=== PATIENT | female | born 1985 | race Hispanic/Latino ===

== ENCOUNTER 2019-05-04 06:30 | Day surgery (SDC) | payer MEDICAID ==
[~2019-05-04] VITALS: Ht 167.6 cm; Wt 137.9 kg
[~2019-05-04 06:30] MED LIST: ATOR40TA71 PO; ICOS1CAP PO; INSU100C6 SQ; INSU100I21 SQ; LEVO125T11 PO; SODIUM CHLORIDE 0.9% 1000ML 1,000 ML IV ONE
[2019-05-04 07:01] VITALS: BP 135/88
[2019-05-04] MEDS ORDERED: PROPOFOL 10 MG/ML 20ML VIAL IV ONE (07:36)
[2019-05-04] MEDS ORDERED: FENTANYL CITRATE PF 50 MCG/1 ML 2ML VIAL ONE (07:36)
[2019-05-04] MEDS ORDERED: ONDANSETRON HCL 4 MG/2 ML VIAL ONE (07:39)
[2019-05-04 07:53] VITALS: BP 107/62
[2019-05-04 07:58] VITALS: BP 119/63
--- NOTE | 2019-05-04 08:00 | NUR ---
GLUCOSE INFORMED Barbara BARKER CRNA OF GLUCOSE OF 310. ORDERS RECEIVED TO HAVE PT TAKE OWN STOCK OF INSULIN AND DOSE AFTER SHE EATS AT HOME. PT AND VERBALIZED UNDERSTANDING.
[2019-05-04 08:03] VITALS: BP 119/89
[2019-05-04 08:08] VITALS: BP 120/86
== END 2019-05-04 08:15 | disposition home or self-care (01) ==
LOC: DAH 06:30 → ENDO 06:30
PROVIDERS: ATTEND Internal Medicine
DX: R12 Heartburn (principal); K22.8 Other specified diseases of esophagus; K29.70 Gastritis, unspecified, without bleeding; E11.9 Type 2 diabetes mellitus without complications; E03.9 Hypothyroidism, unspecified; E78.5 Hyperlipidemia, unspecified; E66.09 Other obesity due to excess calories; Z68.42 Body mass index [BMI] 45.0-49.9, adult; Z90.49 Acquired absence of other specified parts of digestive tract; Z98.890 Other specified postprocedural states; Z79.4 Long term (current) use of insulin; Z79.899 Other long term (current) drug therapy; Z83.3 Family history of diabetes mellitus
CPT/HCPCS: 43239; 81025; 82948 ×2; A4215; A4221; A4222; A4223; A4606; A4620; A4663; J2405; J2704; J3010; J7030